=== PATIENT | female | born 1955 | race Caucasian/White ===

== ENCOUNTER 2022-04-20 03:42 | Inpatient (IN) | payer SELFPAY ==
--- OUTSIDE RECORDS SUMMARY | 2022-04-20 03:45 | XMS REPORT | Continuity of Care Document ---
:1955 Author Organization [facility] t Address [address] [place] [address] Care Team Providers Name Role Phone Na Bryant MD Attending Clinician NA BRYANT Attending Clinician Unavailable TATY Attending Clinician Unavailable TATY Admitting Clinician Unavailable Payers Payer Name Policy Type Policy Number Effective Date Expiration Date S ource Problems Condition Condition Condition Status Onset Resolution Last Treating Co mments Source Name Details Category Date Date Treatment Clinician Date No known No known Disease Unive rs active active ity of problems problems [facility] Allergies, Adverse Reactions, Alerts Allergy Allergy Status Severity Reaction(s) Onset Inactive Treating Comm ents Source Name Type Date Date Clinician NO KNOWN Drug Active Univers ALLERGIE Class ity of S [facility] Social History Social Habit Start Date Stop Date Quantity Comments Source Exposure to Not sure [facility] SARS-CoV-2 (event) [facility] Sex Assigned At [birth year] [facility] 00:00:00 00:00:00 [facility] Smoking Status Start Date Stop Date Source Unknown if ever smoked [facility] Medications Ordered Filled Start Stop Current Ordering Indication Dosage Frequency Signature Comments Components Source Medication Medication Date Date Medication? Clinician (SIG) Name Name doxycycline 2020- No 100mg 100 mg, U nivers hyclate 5-30 05-30 Oral, ity of (Vibramycin 15:15: 14[place]31 [place] capsule 00 :00 dose, Sun Medic al 100 mg 09/27/20 at [address], OBED
Re ason for Anti-Infec tive: Documented Infection< br>Documen pedrito Infection Site: Skin / Soft Tissue
Duration of Therapy: 10 days tetanus-dip 2020- No .5mL 0.5 mL, Un paul htheria 5-30 05-30 Intramuscu ity o f toxoids 15:00: 13:52 lar, ONCE, Aaron as (TENIVAC) 00 :00 1 dose, Medical 5-2 Lf [facility] unit/0.5 mL 09/27/20 at injection 1000, 0.5 mL Routine doxycycline Yes [id number] 100mg Take 1 Univers hyclate 100 09-27 [id number] capsule by ity of mg capsule 00:00: [place] (two[place] Medical times [place] daily. Immunizations Ordered Filled Immunization Date Status Comments [facility] e Immunization Name Name Td 2020-09-27 Completed University 00:00:00 [facility] Vital Signs Vital Name Observation Time Observation Value Comments Source Systolic blood 2020-09-27 14:00:00 158 mm[Hg] [facility] Diastolic blood 2020-09-27 14:00:00 72 mm[Hg] [facility] Heart rate 2020-09-27 14:00:00 76 /min [facility] Respiratory rate 2020-09-27 14:00:00 18 /min [facility] Oxygen saturation in 2020-09-27 14:00:00 99 /min [facility] Arterial blood by [facility] Pulse oximetry [place] Body temperature 2020-09-27 13:26:00 36.17 Koki [facility] Body weight 2020-09-27 13:26:00 47.628 kg [facility] Procedures This patient has no known procedures. Encounters Start End Encounter Admission Attending Care Care Encounter Source Date/Time Date/Time Type Type Clinicians Facility Department ID 2020-09-27 2020-09-27 Emergency Annette MAJEREMY [id number] [facility] 08:27:00 10:39:00 Na Kolb [id number] [place] [id number] [place] [id number] [facility] [address] 2020-09-27 2020-09-27 Emergency X ANNETTE [facility] ERT [id number] Univers 08:27:00 08:27:00 NA salas [facility] 2019-10-18 2019-10-18 Outpatient GUS ALEJANDRO [id number] [place] 03:43:00 03:43:[id number] [facility] Program Results This patient has no known results.
[2022-04-20 04:19] LABS: Albumin 3.2 g/dL (3.4-5.0); Bilirubin Direct 0.4 mg/dL (0-0.2); Bilirubin Total 0.8 mg/dL (0.2-1.0); Magnesium 1.9 mg/dL (1.6-2.4); Potassium 3.6 mmol/L (3.5-5.1); Protein, Total 6.7 g/dL (6.4-8.2)
[2022-04-20 04:27] LABS: Troponin High Sensitivity 60.6 pg/mL (<58.9)
[2022-04-20 04:40] LABS: Protime INR 1.61
[2022-04-20 04:48] LABS: Absolute Lymphocytes (CBC) 1.6 K/uL (0.7-4.9); Hematocrit 30.6 % (36.0-45.0); Lymphocytes % 23.6 % (15.3-44.8); MCV 72.8 fL (80-100); MPV 8.4 fL (7.6-11.3); RBC Red Blood Cell Count 4.21 M/uL (3.86-4.86)
[2022-04-20] MEDS ORDERED: FUROSEMIDE 20 MG/ 2ML VIAL ONE (04:53)
[2022-04-20] MEDS ORDERED: FUROSEMIDE 40 MG/4 ML VIAL ONE (04:53)
--- NOTE | 2022-04-20 04:53 | ER ---
Nurse's Notes [facility] Name: Lurdes Acosta Age: 66 yrs Sex: Female : 1955 Arrival Date: 04/20/2022 Time: 03:44 Bed 4 Private MD: Diagnosis: COPD/ Chronic obstructive pulmonary disease with (acute) exacerbation;Elevated BNP;Demand ischemia Presentation: 04/20 03:45 Chief complaint: EMS states: called out for shortness of breath. pt has a history of as6 COPD and had has increasing shortness of breath today. EMS gave A\T\A treatment and Solu-Medrol. Coronavirus screen: At this time, the client does not indicate any symptoms associated with coronavirus-19. Ebola Screen: No symptoms or risks identified at this time. Initial Sepsis Screen: Does the patient meet any 2 criteria? No. Patient's initial sepsis screen is negative. Does the patient have a suspected source of infection? No. Patient's initial sepsis screen is negative. Risk Assessment: Do you want to hurt yourself or someone else? Patient reports no desire to harm self or others. Onset of symptoms was April 20, 2022. Care prior to arrival: Medication(s) given: Albuterol Neb Atrovent Neb solu-medrol IV initiated. 20 GA, in the right antecubital area, Glucose check: 187. 03:45 Method Of Arrival: [facility] as6 03:45 Acuity: ROSANNA 3 as6 Historical: - Allergies: 03:48 No Known Allergies; as6 - PMHx: 03:48 Chronic obstructive lung disease; as6 - PSHx: 03:48 None; as6 - Immunization history:: Client reports having NOT received the Covid vaccine. - Social history:: Smoking status: Patient/guardian denies using tobacco. Screenin:50 [facility] ED Fall Risk Assessment (Adult) History of falling in the last 3 months, as6 including since admission No falls in past 3 months (0 pts) Confusion or Disorientation No (0 pts) Intoxicated or Sedated No (0 pts) Impaired Gait No (0 pts) Mobility Assist Device Used No (0 pt) Altered Elimination No (0 pt) Score/Fall Risk Level 0 - 2 = Low Risk. Hummarioy Dumpty Scale Fall Assessment Tool (age< 18yrs) Fall Risk Score/ Level Low Fall Risk: </= 11 points. Abuse screen: Denies threats or abuse. Denies injuries from another. Nutritional screening: No deficits noted. Tuberculosis screening: No symptoms or risk factors identified. Fall Risk Total Leslie Fall Scale indicates No Risk (0-24 pts). Assessment: 03:10 General: Appears uncomfortable, Behavior is calm, cooperative. Pain: Denies pain. kd3 Neuro: Level of Consciousness is awake, alert, obeys commands, Oriented to person, place, time, situation. Cardiovascular: Patient's skin is warm and dry. Respiratory: Airway is patent Trachea midline Respiratory effort is even, unlabored, Respiratory pattern is regular, symmetrical. 05:07 Reassessment: No changes from previously documented assessment. Patient and/or family kd3 updated on plan of care and expected duration. Pain level reassessed. Patient is alert, oriented x 3, equal unlabored respirations, skin warm/dry/pink. Patient states feeling better. Patient states symptoms have improved. 06:03 Reassessment: Pt assisted back to bed via wheel chair with oxygen. Resting in bed, jb4 respirations are tachypneic, even and unlabored. 06:30 Reassessment: Notable change in cardiac rhythm on bedside telemetry, continues to read jb4 sinus tach, ED physician notified, instructed to take another EKG, when pt was woken and repositioned, rhythm return to prior appearance, provider notified, instructed to hold EKG at this time. Vital Signs: 03:45 BP 149 / 86; Pulse 110; Resp 20 S; Temp 97.9(O); Pulse Ox 98% on R/A; Weight 40.82 kg; as6 Height 5 ft. 0 in. (152.40 cm) (R); Pain 0/10; 05:02 BP 154 / 85; Pulse 106; Resp 19; Pulse Ox 97% on 2 lpm NC; kd3 06:03 BP 141 / 82; Pulse 107; Resp 24 S; Pulse Ox 95% on 2 lpm NC; jb4 03:45 Body Mass Index 17.58 (40.82 kg, 152.40 cm) as6 ED Course: 03:44 Patient arrived in ED. wm 03:48 Triage completed. as6 03:48 Arm band placed on. as6 03:50 Maintain EMS IV. Dressing intact. Good blood return noted. Site clean \T\ dry. Gauge \T\ as 6 site: 20g RAC. 03:51 Teresa Cisse, RN is Primary Nurse. kd3 03:51 Bed in low position. Call light in reach. Side rails up X 1. as6 04:00 Yvonne Vela MD is Attending Physician. sd2 04:01 XRAY Chest (1 view) In Process Unspecified. EDMS 04:27 Notified ED physician of a critical lab result(s). Troponin 60.6. kl 04:52 Rk Young MD is Hospitalizing Provider. sd2 05:01 COVID-19/FLU A+B Sent. kd3 06:30 No provider procedures requiring assistance completed. Patient admitted, IV remains in jb4 place. Administered Medications: 05:01 Drug: Lasix (furosemide) 60 mg Route: IVP; Site: right antecubital; kd3 05:06 Drug: Aspirin Chewable Tablet 324 mg Route: PO; jb4 Medication: 05:07 VIS not applicable for this client. kd3 Outcome: 04:53 Decision to Hospitalize by Provider. sd2 06:30 Admitted to Tele accompanied by nurse, via stretcher, room 431, with chart, Report jb4 called to LINA Blake 06:30 Condition: stable 06:30 Discharge instructions given to patient, Instructed on the need for admit, Demonstrated understanding of instructions. 06:36 Patient left the ED. kl Signatures: Dispatcher [employer] Bee Barnes RN RN kl Bryson, James, RN RN jb4 Claribel Biggs Ashby, RN RN as6 Teresa Cisse, RN RN kd3 Yvonne Vela MD MD sd2
--- NOTE | 2022-04-20 04:54 | EDPHYS ---
Physician Documentation [facility] Name: Lurdes Acosta Age: 66 yrs Sex: Female : 1955 Arrival Date: 04/20/2022 Time: 03:44 Bed 4 Private MD: ED Physician Yvonne Vela HPI: 04/20 04:06 This 66 yrs old Female presents to ER via EMS with complaints of COPD Exacerbation. sd2 04:06 66 yo F presents via EMS with CC of COPD exacerbation. Reports progressively worsening sd2 SOB for the past few days. Pt with some respiratory distress upon EMS arrival and was given 1 nebulizer treatment and 125 of Solumedrol with improvement. Pt denies any fevers, recent illness, productive cough or chest pain. Pt states she currently feels much better and is back to her normal baseline.. Historical: - Allergies: 03:48 No Known Allergies; as6 - PMHx: 03:48 Chronic obstructive lung disease; as6 - PSHx: 03:48 None; as6 - Immunization history:: Client reports having NOT received the Covid vaccine. - Social history:: Smoking status: Patient/guardian denies using tobacco. ROS: 04:06 Constitutional: Negative for fever, chills, and weight loss, Eyes: Negative for injury, sd2 pain, redness, and discharge, Cardiovascular: Negative for chest pain, palpitations, and edema, Respiratory: Positive for shortness of breath, cough, wheezing. Abdomen/GI: Negative for abdominal pain, nausea, vomiting, diarrhea. MS/Extremity: Negative for injury and deformity, Skin: Negative for injury, rash, and discoloration, Neuro: Negative for headache, numbness and tingling. Exam: 04:06 Constitutional: This is a well developed, well nourished patient who is awake, alert, sd2 and in no acute distress. Head/Face: Normocephalic, atraumatic. Eyes: EOMI, normal conjunctiva bilaterally Chest/axilla: Normal chest wall appearance and motion. Nontender with no deformity. Cardiovascular: Tachycardic rate and regular rhythm with a normal S1 and S2. No gallops, murmurs, or rubs. 2+ distal pulses. Respiratory: Lungs have equal breath sounds bilaterally, clear to auscultation and percussion. No rales, rhonchi or wheezes noted. No increased work of breathing, no retractions or nasal flaring. Abdomen/GI: Soft, non-tender, with normal bowel sounds. No guarding or rebound. No evidence of tenderness throughout. Skin: Warm, dry with normal turgor. Normal color with no rashes, no lesions, and no evidence of cellulitis. MS/ Extremity: Pulses equal, no cyanosis. Neurovascular intact. Full, normal range of motion. Ambulatory without difficulty. Psych: Awake, alert, with orientation to person, place and time. Behavior, mood, and affect are within normal limits. 04:06 ECG was reviewed by the Attending Physician. Sinus tachycardia, rate 106, no clear evidence of STEMI criteria, wandering baseline present due to patient's breathing pattern 05:04 ECG was reviewed by the Attending Physician. Sinus tachycardia, rate 106, LVH with sd2 repolarization abnormality in leads V1-V3, ST depressions in V5 and V6, discussed with Dr. Jauregui who viewed the EKG and recommended troponin trend and echo Vital Signs: 03:45 BP 149 / 86; Pulse 110; Resp 20 S; Temp 97.9(O); Pulse Ox 98% on R/A; Weight 40.82 kg; as6 Height 5 ft. 0 in. (152.40 cm) (R); Pain 0/10; 05:02 BP 154 / 85; Pulse 106; Resp 19; Pulse Ox 97% on 2 lpm NC; kd3 06:03 BP 141 / 82; Pulse 107; Resp 24 S; Pulse Ox 95% on 2 lpm NC; jb4 03:45 Body Mass Index 17.58 (40.82 kg, 152.40 cm) as6 MDM: 04:01 Patient medically screened. sd2 04:06 Differential Diagnosis Differential diagnosis includes but is not limited to: ACS, sd2 DVT/PE, pneumothorax, dissection, musculoskeletal, anxiety, anemia, electrolyte abnormality, pneumonia, CHF, COPD among others. Data reviewed: vital signs, nurses notes. 04:51 Data reviewed: lab test result(s), EKG, radiologic studies. Counseling: I had a sd2 detailed discussion with the patient and/or guardian regarding: the historical points, exam findings, and any diagnostic results supporting the discharge/admit diagnosis, lab results, radiology results, the need for further work-up and treatment in the hospital. ED course: Labs and imaging reviewed. BNP significantly elevated with likely demand ischemia and elevated troponin. Will plan to admit for further management at this time. . 05:02 Physician consultation: Neville Jauregui MD was called at 05:02, was contacted at 05:02, sd2 regarding consult, Will review EKG and get back to me. 04/20 03:49 Order name: Basic Metabolic Panel; Complete Time: 04:29 as04/20 03:49 Order name: CBC with Diff; Complete Time: 06:07 04/20 03:49 Order name: LFT's; Complete Time: 04:29 04/20 03:49 Order name: Magnesium; Complete Time: 04:29 04/20 03:49 Order name: NT PRO-BNP; Complete Time: 04:29 04/20 03:49 Order name: PT-INR; Complete Time: 04:42 04/20 03:49 Order name: Troponin HS; Complete Time: 04:29 04/20 03:49 Order name: XRAY Chest (1 view) 04/20 04:52 Order name: CBC Smear Scan; Complete Time: 06:07 EDMS 04/20 04:57 Order name: Urine Drug Screen; Complete Time: 06:07 04/20 04:59 Order name: COVID-19/FLU A+B; Complete Time: 06:07 EDMS 04/20 05:42 Order name: Urine Dipstick-Ancillary; Complete Time: 06:07 EDMS 04/20 03:49 Order name: EKG; Complete Time: 03:50 04/20 03:49 Order name: Cardiac monitoring; Complete Time: 03:50 04/20 03:49 Order name: EKG - Nurse/Tech; Complete Time: 03:50 04/20 03:49 Order name: IV Saline Lock; Complete Time: 03:50 04/20 03:49 Order name: Labs collected and sent; Complete Time: 04:00 04/20 03:49 Order name: O2 Per Protocol; Complete Time: 03:50 04/20 03:49 Order name: O2 Sat Monitoring; Complete Time: 03:50 04/20 04:30 Order name: EKG - Nurse/Tech; Complete Time: 04:31 sd2 Administered Medications: 05:01 Drug: Lasix (furosemide) 60 mg Route: IVP; Site: right antecubital; kd3 05:06 Drug: Aspirin Chewable Tablet 324 mg Route: PO; jb4 Disposition Summary: 04/20/22 04:53 Hospitalization Ordered Hospitalization Status: Inpatient Admission sd2 Provider: Rk Young2 Location: Telemetry/MedSurg (Inpatient) sd2 Condition: Stable sd2 Problem: new sd2 Symptoms: have improved sd2 Bed/Room Type: Standard sd2 Room Assignment: 431(04/20/22 06:01) mw Diagnosis - COPD/ Chronic obstructive pulmonary disease with (acute) exacerbation sd2 - Elevated BNP sd2 - Demand ischemia sd2 Forms: - Medication Reconciliation Form sd2 - SBAR form sd2 Signatures: Dispatcher [employer] EDMS Sharee Fonseca RN RN mw Abhinav Marin, KING MAKER-C KING MAKER-Cla1 Dontrell Bah RN RN jb4 Leonel Adrian RN RN as6 Teresa Cisse RN RN kd3 Yvonne Vela MD MD sd2 Corrections: (The following items were deleted from the chart) 04:59 04:30 SARS-COV-2 RT PCR+MOL.LAB.BRZ ordered. EDMS EDMS 04:59 04:30 Influenza Screen (A \T\ B)+BA.LAB.BRZ ordered. EDMS EDMS 06:01 04:53 sd2 mw
[2022-04-20] MEDS ORDERED: ASPIRIN 81 MG CHEWABLE TABLET ONE (05:02)
[2022-04-20 05:13] LABS: Blood Morphology Comment NOTED (NOT SEEN); Platelet Estimate ADEQ; Target Cells 2+; White Blood Cell Scan OK (OK)
--- NOTE | 2022-04-20 05:15 | P.HP ---
Certification for Inpatient Patient admitted to: Inpatient With expected LOS: >2 Midnights Patient will require the following post-hospital care: None Practitioner: I am a practitioner with admitting privileges, knowledge of patient current condition, hospital course, and medical plan of care. Services: Services provided to patient in accordance with Admission requirements found in Title 42 Section 412.3 of the Code of Federal Regulations <Abhinav Marin Constantino Pena - Last Filed: 04/20/22 05:12> Patient History Date of Service: 04/20/22 Reason for admission: NSTEMI, CHF History of Present Illness: 66-year-old female with history of COPD presents the emergency department for 3 to 4 days of dyspnea on exertion, orthopnea. She denies any known history of CHF, she was evaluated in the emergency department her labs were significant for microcytic anemia with hemoglobin 9.3, hematocrit 30.6 high-sensitivity troponin 60.6 BNP 10,581 EKG shows left ventricular hypertrophy with repolarization normality. Patient saturations in the low 90s she denies any chest pain currently does report shortness of breath at rest and with exertion. ED provider discussed case with cardiology who reviewed EKG states not STEMI recommends echocardiogram and trending of troponins. Will admit to the hospital service for further evaluation and management of suspected new onset CHF. - Past Medical/Surgical History -: COPD -: None Psychosocial/ Personal History: Patient lives at home with a roommate - Family History Mother -: Stroke - Social History Smoking Status: Current every day smoker Alcohol use: No CD- Drugs: No Caffeine use: Yes Place of Residence: Home <Abhinav Marin - Last Filed: 04/20/22 05:12> Date of Service: 04/20/22 <Cale North - Last Filed: 04/20/22 11:24> Allergies No Known Allergies Allergy (Unverified 05/09/14 18:10) Review of Systems 10-point ROS is otherwise unremarkable Respiratory: Cough, Shortness of Breath, SOB with Excertion Cardiovascular: Orthopnea <Abhinav Marin - Last Filed: 04/20/22 05:12> Physical Examination - Physical Exam General: Alert, In no apparent distress, Oriented x3 HEENT: Atraumatic, PERRLA, Mucous membr. moist/pink, EOMI, Sclerae nonicteric Neck: Supple, 2+ carotid pulse no bruit, No LAD, JVD distended Respiratory: Diminished, Crackles/rales Cardiovascular: Regular rate/rhythm, Normal S1 S2 Gastrointestinal: Normal bowel sounds, No tenderness Musculoskeletal: No tenderness Integumentary: No rashes Neurological: Normal speech, Normal strength at 5/5 x4 extr, Normal tone, Normal affect - Studies Laboratory Data (last 24 hrs) 04/20/22 04:25: PT 17.7 H, INR 1.61 04/20/22 04:25: WBC 6.90, Hgb 9.3 L, Hct 30.6 L, Plt Count 364 04/20/22 03:50: Sodium 138, Potassium 3.6, BUN 17, Creatinine 0.98, Glucose 130 H, Magnesium 1.9, Total Bilirubin 0.8, AST 33, ALT 36, Alkaline Phosphatase 79 <Abhinav Marin - Last Filed: 04/20/22 05:12> - Studies Laboratory Data (last 24 hrs) 04/20/22 04:25: PT 17.7 H, INR 1.61 04/20/22 04:25: WBC 6.90, Hgb 9.3 L, Hct 30.6 L, Plt Count 364 04/20/22 03:50: Sodium 138, Potassium 3.6, BUN 17, Creatinine 0.98, Glucose 130 H, Magnesium 1.9, Total Bilirubin 0.8, AST 33, ALT 36, Alkaline Phosphatase 79 <Cale North - Last Filed: 04/20/22 11:24> Assessment and Plan - Plan Assessment: NSTEMI New onset CHFunknown EF History of COPD Microcytic anemia Plan: NSTEMI: EKG reviewed by cardiology, suggestive of repolarization around evaluation STEMI. Trend troponin, monitor on telemetry, given aspirin in ED as well as Lasix. Will obtain echocardiogram. New onset CHFunknown EF: Continue with beta-cesar, CHIDI inhibitor, cardiology consult, Lasix. Echocardiogram ordered. No known history of CHF. History of COPD: No obvious exacerbation, no wheezing noted. As needed nebulizer treatments. Microcytic anemia: We will obtain iron studies likely BREANNA versus anemia of chronic disease. No active bleeding reported. DVT PPX: Lovenox Code status: Full Discharge Plan: Home Plan to discharge in: 48 Hours - Advance Directives Does patient have a Living Will: No Does patient have a Durable POA for Healthcare: No - Code Status/Comfort Care Code Status Assessed: Yes (Full code) Critical Care: No Time Spent Managing Pts Care (In Minutes): 55 <Abhinav Marin - Last Filed: 04/20/22 05:12> Physician Review: Patient Assessed, Agree with Above Assessment and Plan <Cale North - Last Filed: 04/20/22 11:24>
[2022-04-20 05:40] LABS: SARS-COV-2 RT PCR NEGATIVE (NEGATIVE)
[2022-04-20 05:42] LABS: Urine Blood Negative (Negative); Urine Glucose Negative (Negative); Urine Protein Negative (Negative)
[2022-04-20 06:06] LABS: Barbiturates NEGATIVE (NEGATIVE); Benzodiazepines NEGATIVE (NEGATIVE); Cocaine NEGATIVE (NEGATIVE); METHAMPHETAM POSITIVE (NEGATIVE); Methadone NEGATIVE (NEGATIVE); Opiates NEGATIVE (NEGATIVE); Phencyclidine NEGATIVE (NEGATIVE); THC Cannibis NEGATIVE (NEGATIVE)
[2022-04-20] MEDS ORDERED: ACETAMINOPHEN 500 MG TAB PO PRN (07:06)
[2022-04-20] MEDS ORDERED: ONDANSETRON 4 MG/2 ML VIAL IV PRN (07:06)
[2022-04-20] MEDS: FUROSEMIDE 20 MG/ 2ML VIAL IV SCH ×2 (08:13→16:37)
[2022-04-20] MEDS: lisinopriL 5 MG TAB PO SCH ×2 (08:13→08:14)
[2022-04-20] MEDS: METOPROLOL TAR 25 MG TAB PO SCH ×2 (08:13→17:14)
[2022-04-20] MEDS: ENOXAPARIN 40 MG/0.4 ML SQ SCH (08:14)
[2022-04-20 09:55] VITALS: BMI 17.6
--- NOTE | 2022-04-20 11:58 | RAD REPORT ---
EXAM DESCRIPTION: X-ray single view chest. CLINICAL HISTORY: 66 years Female, COPD COMPARISON: None. TECHNIQUE: Single portable x-ray view of the chest performed on 04/20/2022 at 3:56 AM FINDINGS: Lungs are well-expanded. There is bibasilar volume loss greater on the left likely due to a combination of pleural fluid and atelectasis. Underlying inflammatory changes are not excluded. The re is mild perihilar interstitial prominence which may reflect interstitial edema and/or chronic fibr osis. There is no evidence of a pneumothorax. The cardiac silhouette is mildly prominent and may be accentuated by the portable technique. The mediastinal contours are normal. No acute osseous abnormality is identified. There is mild diffuse bone demineralization. There appear s be an old fracture of the posterior right eighth rib. No acute soft tissue abnormalities are seen. Lines and tubes: There are a few overlying hall monitor leads. Free air: None IMPRESSION: 1. Bibasilar volume loss greater on the left likely due to a combination of pleural fl uid and atelectasis. Underlying inflammatory changes are not excluded. 2. Mild perihilar interstitial prominence which may reflect interstitial edema and/or chronic fibro sis. Electronically signed by: Itzel Tabor DO 04/20/2022 4:22 AM [employer] Due to temporary technical issues with the PACS/Fluency reporting system, reports are being signed by the in house radiologists without review as a courtesy to insure prompt reporting. The interpreting radiologist is fully responsible for the content of the report.
--- NOTE | 2022-04-20 13:58 | EKG ---
Test Date: 2022-04-20 Test Time: 04:56:32 Jumpbasting Canvas Baster: CARLIN MEASUREMENT RESULTS: Intervals: Rate: 106 SC: 134 QRSD: 112 QT: 372 QTc: 494 [place]: P: 85 SC: 134 QRS: 245 T: 76 INTERPRETIVE STATEMENTS: Sinus tachycardia Possible Left atrial enlargement Right superior axis deviation Incomplete left bundle branch block Left ventricular hypertrophy with repolarization abnormality Abnormal ECG Compared to ECG 04/20/2022 03:46:53 Right superior axis now present Left bundle-branch block now present Left ventricular hypertrophy now present Early repolarization now present Right-axis deviation no longer present ST (T wave) deviation no longer present Electronically Signed On 04-20-22 13:58:13 [address] MANAGER by Neville Jauregui
--- NOTE | 2022-04-20 13:59 | EKG ---
Test Date: 2022-04-20 Test Time: 03:46:53 Painter Set: CARLIN MEASUREMENT RESULTS: Intervals: Rate: 106 LA: 136 QRSD: 112 QT: 372 QTc: 494 [place]: P: 79 LA: 136 QRS: 109 T: 108 INTERPRETIVE STATEMENTS: Sinus tachycardia Possible Left atrial enlargement Rightward axis Pulmonary disease pattern Nonspecific ST and T wave abnormality Abnormal ECG Compared to ECG 08/03/2005 12:54:47 Right-axis deviation now present ST (T wave) deviation now present Sinus rhythm no longer present Short LA interval no longer present Left ventricular hypertrophy no longer present Electronically Signed On 04-20-22 13:58:22 WINDOW AND SIDING CRAFTSMAN by Neville Jauregui
--- NOTE | 2022-04-20 14:31 | ECHO ---
HEIGHT: 5 ft 0 in WEIGHT: 90 lb 0 oz DATE OF STUDY: 04/20/[address]: Abhinav Marin NP 2-DIMENSIONAL: YES M.MODE: YES DOPPLER: YES COLOR FLOW: YES TDS: NO PORTABLE: YES DEFINITY: NO BUBBLE STUDY: NO DIAGNOSIS: NEW CONGESTIVE HEART FAILURE, NSTEMI CARDIAC HISTORY: CATHERIZATION: NO SURGERY: NO PROSTHETIC VALVE: NO PACEMAKER: NO MEASUREMENTS (cm) DIASTOLIC (NORMALS) SYSTOLIC (NORMALS) IVSd 1.1 (0.6-1.2) LA Diam 3.2 (1.9-4.0) LVEF 50% LVIDd 4.4 (3.5-5.7) LVIDs 3.4 (2.0-3.5) %FS 22% LVPWd 1.1 (0.6-1.2) Ao Diam 2.7 (2.0-3.7) 2 DIMENSIONAL ASSESSMENT: RIGHT ATRIUM: NORMAL LEFT ATRIUM: ENLARGED RIGHT VENTRICLE: NORMAL LEFT VENTRICLE: NORMAL TRICUSPID VALVE: MITRAL VALVE: PULMONIC VALVE: NORMAL AORTIC VALVE: PERICARDIAL EFFUSION: SMALL AORTIC ROOT: NORMAL LEFT VENTRICULAR WALL MOTION: MILD GLOBAL HYPOKINESIS. DOPPLER/COLOR FLOW: SEE BELOW. COMMENTS: 1. LOW NORMAL LEFT VENTRICULAR EJECTION FRACTION OF 50-55%. 2. MILD GLOBAL HYPOKINESIS. 3. MODERATE TO SEVERE TRICUSPID REGURGITATION. 4. MODERATE TO SEVERE MITRAL REGURGITATION. 5. SMALL PERICARDIAL EFFUSION. 6. LARGE PLEURAL EFFUSION. 7. MODERATE MOTRAL VALVE STENOSIS. 8. SEVERE PULMONARY HYPERTENSION WITH RIGHT VENTRICULAR SYSTOLIC PRESSURE >60 mmHg. TECHNOLOGIST: Vic PENA
--- NOTE | 2022-04-20 19:59 | CON ---
Date of Consultation: 04/20/2022 Reason For Consultation: Congestive heart failure and shortness of breath. History Of Present Illness: This 66-year-old female with history of COPD presents to the emergency r oom with shortness of breath and orthopnea. Denies history of heart problems. Denies having any pascual st pain. She has significant orthopnea and generally is very weak. No other complaints. Past Medical History: As outlined above in the HPI. Medications: Refer to reconciliation sheet for detailed list. Allergies: NO KNOWN DRUG ALLERGIES. Family History: No premature coronary artery disease or cancer. Social History: Smokes a pack per day. Does not drink or use any drugs. Review of Systems: All systems reviewed and they are negative except for mentioned in HPI. Physical Examination: Vital Signs: Reviewed. Head And Neck: Pupils are equal and reactive to light. Intact eye movements. Mild JVD elevation. Lungs: Crackles in both lungs. No accessory muscle use or muscle retraction. Heart: Irregular. No extra sounds. Abdomen: Soft, nontender. Bowel sounds positive. No organomegaly. No masses or hernia. No rigidi ty or rebound. Extremities: Trace edema bilaterally. No clubbing or cyanosis. Intact pulses. Skin: No rashes. Neurologic: Alert, awake, and oriented x3. No acute focal deficits appreciated. Lymph Nodes: No cervical or axillary lymphadenopathy. Investigations: Troponin 60 and then 47. BUN 17, creatinine 0.98, and hemoglobin 9.3. Assessment/recommendation: 1.[id number] congestive heart failure exacerbation. The patient's ejection fraction on echo i s normal; however, she has severe tricuspid regurgitation and mitral valve regurgitation and probably are the cause for the heart failure. Recommend IV diuresis. Carefully monitor BUN, creatinine, and electrolytes. 2.Severe pulmonary hypertension. This is likely due to heart failure and should respond well to diu retics. 3.Borderline elevated troponin. No chest pain. Outpatient stress test will be recommended. 4.Severe mitral valve regurgitation/severe tricuspid valve regurgitation. The patient will need to have surgical referral for valvular repair of mitral and tricuspid. 5.Smoker. Patient was counseled against smoking in detail. SR/MODL Voice ID: [id number] Report ID: [id number]
[2022-04-20] MEDS: ATORVASTATIN 40 MG TAB PO SCH (21:31)
[2022-04-21] MEDS: METOPROLOL TAR 25 MG TAB PO SCH ×2 (05:36→17:13)
[2022-04-21 06:15] LABS: Absolute Lymphocytes (CBC) 2.5 K/uL (0.7-4.9); Hematocrit 30.8 % (36.0-45.0); Lymphocytes % 23.8 % (15.3-44.8); MPV 8.2 fL (7.6-11.3); RBC Red Blood Cell Count 4.28 M/uL (3.86-4.86)
[2022-04-21 06:40] LABS: Albumin 2.9 g/dL (3.4-5.0); Bilirubin Total 0.5 mg/dL (0.2-1.0); Ferritin 13.2 ng/mL (8-388); Potassium 3.7 mmol/L (3.5-5.1); Protein, Total 6.4 g/dL (6.4-8.2); Thyroid Stimulating Hormone 2.24 uIU/mL (0.358-3.740)
[2022-04-21 06:55] LABS: Anisocytosis 1+; Blood Morphology Comment NOTED (NOT SEEN); Platelet Estimate ADEQ; White Blood Cell Scan OK (OK)
[2022-04-21] MEDS: FUROSEMIDE 20 MG/ 2ML VIAL IV SCH ×2 (07:49→17:13)
[2022-04-21] MEDS: ENOXAPARIN 40 MG/0.4 ML SQ SCH (07:49)
[2022-04-21] MEDS ORDERED: POTASSIUM CL SA 10 MEQ TAB PO ONE (09:00)
[2022-04-21] MEDS ORDERED: ASPIRIN EC 81 MG TAB PO SCH (09:00)
[2022-04-21 12:21] VITALS: O2SAT 94
--- NOTE | 2022-04-21 17:35 | P.PN ---
Subjective Date of Service: 04/21/22 Chief Complaint: NSTEMI, CHF No acute events overnight. She reports that her shortness of breath is persistent. She reports associated orthopnea and lower extremity edema. She denies any chest pain or palpitations. Review of Systems 10-point ROS is otherwise unremarkable Respiratory: Shortness of Breath Cardiovascular: Orthopnea, Edema Physical Examination - Vital Signs Temperature: 98.3 F Blood Pressure: 130/72 Pulse: 92 Respirations: 18 Pulse Ox (%): 95 - Physical Exam General: Alert, In no apparent distress, Oriented x3 HEENT: Atraumatic, Mucous membr. moist/pink, EOMI, Sclerae nonicteric Neck: JVD distended Respiratory: Crackles/rales (bibasilar) Cardiovascular: Regular rate/rhythm, Normal S1 S2, No gallops, No rubs, Edema (1-2+ BLE), Systolic murmur Gastrointestinal: Normal bowel sounds, Soft and benign, Non-distended, No tenderness, No rebound, No guarding Musculoskeletal: No clubbing Integumentary: No rashes Neurological: Normal speech, Cranial nerves 3-12 intact, Normal affect Assessment And Plan - Plan # Acute Decompensated Diastolic Congestive Heart Failure with Preserved Ejection Fraction # Severe Pulmonary Hypertension # Moderate-Severe Mitral Regurgitation # Moderate-Severe Tricuspid Regurgitation # Moderate Mitral Stenosis - Consult Cardiology and spoke with Dr. Jauregui - recommendations appreciated - Recommended diuresis + possible evaluation for valvular repair - Spoke with [facility] on-call Cardiology (Dr. Pierce), who believes that her case would be an appropriate transfer, but would require hospitalist as primary and advanced heart failure consultation - Transfer initiated and spoke with [facility] hospitalist, Dr. Wright - She states that she will speak with advanced heart failure team and let us know if we should proceed with transfer - Transthoracic echocardiogram = "1. low normal left ventricular ejection fraction of 50-55%. 2. mild global hypokinesis. 3. moderate to severe tricuspid regurgitation. 4. moderate to severe mitral regurgitation. 5. small pericardial effusion. 6. large pleural effusion. 7. moderate motral valve stenosis. 8. severe pulmonary hypertension with right ventricular systolic pressure >60 mmHg." - Diuresis with IV furosemide - Continue metoprolol, lisinopril - Daily weights - Strict I/O - Cardiac diet, 1.5 L fluid restriction, 2 g Na restriction # Type II Non-ST Segment Elevation Myocardial Infarction (Demand Ischemia) secondary to above - Cardiology consulted and spoke with Dr. Jauregui - recommendations appreciated - EKG without reported STEMI criteria - Troponin trend: 60.6 -> 47.4 -> 51.5 - Transthoracic echocardiogram = "1. low normal left ventricular ejection fraction of 50-55%. 2. mild global hypokinesis. 3. moderate to severe tricuspid regurgitation. 4. moderate to severe mitral regurgitation. 5. small pericardial effusion. 6. large pleural effusion. 7. moderate motral valve stenosis. 8. severe pulmonary hypertension with right ventricular systolic pressure >60 mmHg." - Continue aspirin, atorvastatin, lisinopril, metoprolol # Chronic Obstructive Pulmonary Disease - No evidence of acute exacerbation - Resume home medications once verified Cale North M.D.
[2022-04-21] MEDS: ATORVASTATIN 40 MG TAB PO SCH (20:56)
[2022-04-21 23:55] VITALS: BP 143/65; TEMP 97.2
--- NOTE | 2022-04-22 00:31 | P.DS ---
Admission Date: 04/20/22 Discharge Date: 04/22/22 Disposition: TRANSFER TO [facility] Discharge Condition: GOOD Reason for Admission: NSTEMI, CHF Consultations: CardiologyDr. Jauregui Procedures: Echocardiogram 04/20/2022 1. LOW NORMAL LEFT VENTRICULAR EJECTION FRACTION OF 50-55%. 2. MILD GLOBAL HYPOKINESIS. 3. MODERATE TO SEVERE TRICUSPID REGURGITATION. 4. MODERATE TO SEVERE MITRAL REGURGITATION. 5. SMALL PERICARDIAL EFFUSION. 6. LARGE PLEURAL EFFUSION. 7. MODERATE MOTRAL VALVE STENOSIS. 8. SEVERE PULMONARY HYPERTENSION WITH RIGHT VENTRICULAR SYSTOLIC PRESSURE >60 mmHg. Chest x-ray 04/20/2022 FINDINGS: Lungs are well-expanded. There is bibasilar volume loss greater on the left likely due to a combination of pleural fluid and atelectasis. Underlying inflammatory changes are not excluded. There is mild perihilar interstitial prominence which may reflect interstitial edema and/or chronic fibrosis. There is no evidence of a pneumothorax. The cardiac silhouette is mildly prominent and may be accentuated by the portable technique. The mediastinal contours are normal. No acute osseous abnormality is identified. There is mild diffuse bone demineralization. There appears be an old fracture of the posterior right eighth rib. No acute soft tissue abnormalities are seen. Lines and tubes: There are a few overlying monitoring analyst leads. Free air: None IMPRESSION: 1. Bibasilar volume loss greater on the left likely due to a combination of pleural fluid and atelectasis. Underlying inflammatory changes are not excluded. 2. Mild perihilar interstitial prominence which may reflect interstitial edema and/or chronic fibrosis Brief History of Present Illness: 66-year-old female with history of COPD presents the emergency department for 3 to 4 days of dyspnea on exertion, orthopnea. She denies any known history of CHF, she was evaluated in the emergency department her labs were significant for microcytic anemia with hemoglobin 9.3, hematocrit 30.6 high-sensitivity troponin 60.6 BNP 10,581 EKG shows left ventricular hypertrophy with repolarization normality. Patient saturations in the low 90s she denies any chest pain currently does report shortness of breath at rest and with exertion. ED provider discussed case with cardiology who reviewed EKG states not STEMI recommends echocardiogram and trending of troponins. Will admit to the hospital service for further evaluation and management of suspected new onset CHF. Hospital Course: Patient was admitted for CHF exacerbation, her echocardiogram showed "1. low normal left ventricular ejection fraction of 50-55%. 2. mild global hypokinesis. 3. moderate to severe tricuspid regurgitation. 4. moderate to severe mitral regurgitation. 5. small pericardial effusion. 6. large pleural effusion. 7. moderate motral valve stenosis. 8. severe pulmonary hypertension with right ventricular systolic pressure >60 mmHg." Cardiology recommended evaluation from heart failure team with possible valve repair. Yesterday attending physician Dr. North discussed case with heart failure team Dr. Pierce as well as hospitalist Dr. Wright and cardiology Dr. Gillis from [facility] accepted pa tient to their service. # Acute Decompensated Diastolic Congestive Heart Failure with Preserved Ejection Fraction # Severe Pulmonary Hypertension # Moderate-Severe Mitral Regurgitation # Moderate-Severe Tricuspid Regurgitation # Moderate Mitral Stenosis - Consult Cardiology and spoke with Dr. Jauregui - recommendations appreciated - Recommended diuresis + possible evaluation for valvular repair - Spoke with [facility] on-call Cardiology (Dr. Pierce), who believes that her case would be an appropriate transfer, but would require hospitalist as primary and advanced heart failure consultation - Transfer initiated and spoke with [facility] hospitalist, Dr. Wright and cardiology Dr. Gillis - She states that she will speak with advanced heart failure team and let us know if we should proceed with transfer -Patient was accepted to [facility] for heart failure team evaluation. - Transthoracic echocardiogram = "1. low normal left ventricular ejection fraction of 50-55%. 2. mild global hypokinesis. 3. moderate to severe tricuspid regurgitation. 4. moderate to severe mitral regurgitation. 5. small pericardial effusion. 6. large pleural effusion. 7. moderate motral valve stenosis. 8. severe pulmonary hypertension with right ventricular systolic pressure >60 mmHg." - Diuresis with IV furosemide - Continue metoprolol, lisinopril - Daily weights - Strict I/O - Cardiac diet, 1.5 L fluid restriction, 2 g Na restriction # Type II Non-ST Segment Elevation Myocardial Infarction (Demand Ischemia) secondary to above - Cardiology consulted and spoke with Dr. Jauregui - recommendations appreciated - EKG without reported STEMI criteria - Troponin trend: 60.6 -> 47.4 -> 51.5 - Transthoracic echocardiogram = "1. low normal left ventricular ejection fraction of 50-55%. 2. mild global hypokinesis. 3. moderate to severe tricuspid regurgitation. 4. moderate to severe mitral regurgitation. 5. small pericardial effusion. 6. large pleural effusion. 7. moderate motral valve stenosis. 8. severe pulmonary hypertension with right ventricular systolic pressure >60 mmHg." - Continue aspirin, atorvastatin, lisinopril, metoprolol # Chronic Obstructive Pulmonary Disease - No evidence of acute exacerbation - Resume home medications once verified Vital Signs/Physical Exam: Temp Pulse Resp BP Pulse Ox 97.2 F 89 18 143/65 H 96 04/21/22 23:54 04/21/22 23:54 04/21/22 23:54 04/21/22 23:54 04/21/22 23:54 Laboratory Data at Discharge: WBC Cancelled 04/22/22 05:00 Hgb Cancelled 04/22/22 05:00 Hct Cancelled 04/22/22 05:00 Plt Count Cancelled 04/22/22 05:00 PT 17.7 SECONDS (9.5-12.5) H 04/20/22 04:25 INR 1.61 04/20/22 04:25 Sodium Cancelled 04/22/22 05:00 Potassium Cancelled 04/22/22 05:00 BUN Cancelled 04/22/22 05:00 Creatinine Cancelled 04/22/22 05:00 Glucose Cancelled 04/22/22 05:00 Magnesium Cancelled 04/22/22 05:00 Total Bilirubin Cancelled 04/22/22 05:00 AST Cancelled 04/22/22 05:00 ALT Cancelled 04/22/22 05:00 Alkaline Phosphatase Cancelled 04/22/22 05:00 Triglycerides 73 mg/dL (<150) 04/21/22 06:02 Cholesterol 96 mg/dL (<200) 04/21/22 06:02 HDL Cholesterol 33 mg/dL (40-60) L 04/21/22 06:02 Cholesterol/HDL Ratio 2.91 04/21/22 06:02 Home Medications: NK [No Home Meds] 04/20/22 Followup: Unknown,U [Primary Care Provider] -
[2022-04-22] MEDS ORDERED: ENOXAPARIN 30 MG/0.3 ML SQ SCH (09:00)
== END 2022-04-22 00:10 | disposition short-term general hospital (02) | DRG 282 ==
LOC: ER 03:42 → ERHOLD 05:05 → 4TH 06:27
PROVIDERS: ADMIT Internal Medicine; ATTEND Internal Medicine
DX: I50.33 Acute on chronic diastolic (congestive) heart failure (principal); I21.A1 Myocardial infarction type 2; D50.9 Iron deficiency anemia, unspecified; I08.1 Rheumatic disorders of both mitral and tricuspid valves; I27.20 Pulmonary hypertension, unspecified; J44.9 Chronic obstructive pulmonary disease, unspecified; F17.200 Nicotine dependence, unspecified, uncomplicated; R79.89 Other specified abnormal findings of blood chemistry; Z28.310 Unvaccinated for COVID-19; Z20.822 Contact with and (suspected) exposure to COVID-19
CPT/HCPCS: 0240U; 36415; 71045; 80048; 80053; 80061; 80076; 80307; 81003; 82728; 83540; 83735; 83880; 84439; 84443; 84466; 84484; 85025; 85610; 86850; 86900; 86901; 93005; 93306; 96374; 99285; J1650; J1940